=== PATIENT | male | born 1995 | race Two or more races ===

== ENCOUNTER 2025-07-14 21:18 | Emergency (ER) | payer MEDICAID, OTHER ==
[~2025-07-14] VITALS: Ht 180.3 cm; Wt 90.7 kg
[2025-07-14 23:40] VITALS: BP 126/73; TEMP 98; O2SAT 99
== END 2025-07-15 01:22 | disposition home or self-care (01) ==
LOC: ER 21:26
DX: S62.315A Displaced fracture of base of fourth metacarpal bone, left hand, initial encounter for closed fracture (principal); X58.XXXA Exposure to other specified factors, initial encounter; Y93.89 Activity, other specified; Y92.89 Other specified places as the place of occurrence of the external cause; Y99.8 Other external cause status
CPT/HCPCS: 73130-TC